=== PATIENT | male | born 1990 | race African-American/Black ===

== ENCOUNTER 2022-02-01 12:57 | Emergency (ER) | payer OTHER, SELFPAY | END 2022-02-01 15:16 | disposition home or self-care (01) | LOC: CSHERS 12:57 | DX: S13.9XXA Sprain of joints and ligaments of unspecified parts of neck, initial encounter (principal); R07.89 Other chest pain; F17.210 Nicotine dependence, cigarettes, uncomplicated; V43.52XA Car driver injured in collision with other type car in traffic accident, initial encounter | CPT/HCPCS: 71045 ==